=== PATIENT | female | born 1940 | race Caucasian/White ===

== ENCOUNTER 2024-08-15 07:30 | Inpatient (IN) | payer MEDICARE, BC ==
[~2024-08-15] VITALS: Ht 162.6 cm; Wt 59.0 kg
[2024-08-15 07:57] LABS: BASOPHILS % (AUTO) 0.2 % (0.0-2.0); HEMATOCRIT 39.7 % (31.2-41.9); HEMOGLOBIN 13.3 g/dL (10.9-14.3); LYMPHOCYTES # (AUTO) 0.5 K/uL (0.8-4.8); LYMPHOCYTES % (AUTO) 9.5 % (20.5-51.5); MEAN CORPUSCULAR HEMOGLOBIN 32.1 uug (24.7-32.8); MEAN CORPUSCULAR HGB CONC 34 g/dL (32.3-35.6); MEAN CORPUSCULAR VOLUME 95.8 fL (75.5-95.3); MONOCYTES # (AUTO) 0.4 K/uL (0.1-1.30); MONOCYTES % (AUTO) 7.4 % (0.0-11.0); NEUTROPHILS # (AUTO) 4.6 K/uL (1.8-8.9); NEUTROPHILS % (AUTO) 82.9 % (38.5-71.5); PLATELET COUNT (AUTO) 80 K/uL (179-408); RED BLOOD CELL COUNT(AUTO) 4.14 MIL/uL (3.63-4.92); WHITE BLOOD COUNT (AUTO) 5.6 K/uL (3.8-11.8)
[2024-08-15 07:58] LABS: DIFFERENTIAL COMMENT 1
[2024-08-15] MEDS ORDERED: CEFTRIAXONE /D5W 50ML IVPB **ER PYXIS IV ONE (08:02)
[2024-08-15] MEDS ORDERED: AZITHROMYCIN 250 MG TABLET ONE (08:03)
[2024-08-15] MEDS: AZITHROMYCIN 250 MG TABLET PO ONE (08:03)
[2024-08-15] MEDS: CEFTRIAXONE 1 G in IV DEXTROSE 5% 50 ML IV ONE (08:03)
[2024-08-15] MEDS: IV NORMAL SALINE 1000 ML BAG IV ONE (08:03)
[2024-08-15 08:06] LABS: CARBON DIOXIDE 28 mmol/L (21-32); CHLORIDE 97 mmol/L (98-107); CREATININE 1.1 mg/dL (0.6-1.3); GLUCOSE 87 mg/dL (74-106); POTASSIUM 4.1 mmol/L (3.5-5.1); SODIUM SERUM 127 mmol/L (136-145); UREA NITROGEN, BLOOD 18 mg/dL (7-18)
[2024-08-15 08:19] LABS: ALANINE AMINOTRANSFERASE 15 U/L (14-59); ALBUMIN 3.3 g/dL (3.4-5.0); ALKALINE PHOSPHATASE 61 U/L (50-136); ASPARTATE AMINOTRANSFERASE 21 U/L (15-37); BILIRUBIN,DIRECT 0.3 mg/dL (0.0-0.2); BILIRUBIN,TOTAL 0.6 mg/dL (0.2-1.0); NT-PRO BNP 1324 pg/mL (0-125); TOTAL PROTEIN, SERUM 6.7 g/dL (6.4-8.2)
[2024-08-15] MEDS ORDERED: ATEN25TA PO (08:51)
[2024-08-15] MEDS ORDERED: HYDR200T81 PO (08:51)
[2024-08-15] MEDS ORDERED: ATEN-170 PO (08:51)
[2024-08-15] MEDS ORDERED: PRED1TAB PO (08:51)
[2024-08-15] MEDS ORDERED: CHOL10005 PO (08:51)
[2024-08-15] MEDS ORDERED: GABA-532 PO (08:51)
[2024-08-15] MEDS ORDERED: METOCLOPRAMIDE HCL 10 MG/2 ML VIAL ONE (09:16)
[2024-08-15] MEDS ORDERED: KETOROLAC TROMETHAMINE 15 MG INJ ONE (09:16)
[2024-08-15] MEDS: METOCLOPRAMIDE HCL 10 MG/2 ML VIAL IV ONE (09:22)
[2024-08-15] MEDS: KETOROLAC TROMETHAMINE 15 MG INJ IVP ONE (09:23)
[2024-08-15] MEDS: ACYCLOVIR IV 500 MG in IV DEXTROSE 5% 100 ML IV SCH (10:22)
[2024-08-15] MEDS ORDERED: ACYCLOVIR 500 MG VIAL IV ONE (10:22)
[2024-08-15 10:27] LABS: CSF GLUCOSE 53 mg/dL (40-70); CSF PROTEIN 40 mg/dL (15-45)
[2024-08-15] MEDS ORDERED: ONDANSETRON 4 MG/2 ML VIAL ONE (11:02)
[2024-08-15] MEDS: ONDANSETRON 4 MG/2 ML VIAL IV ONE (11:02)
[2024-08-15] MEDS ORDERED: MORPHINE SULFATE 4 MG/1 ML DISP.SYRIN ONE (11:02)
[2024-08-15] MEDS: MORPHINE SULFATE 4 MG/1 ML DISP.SYRIN IV ONE (11:02)
[2024-08-15 12:24] LABS: CSF APPEARANCE CLEAR (CLEAR); CSF COLOR COLORLESS (COLORLESS); CSF VOLUME 1.6 mL
[2024-08-15 12:56] LABS: CSF WHITE BLOOD CELL COUNT 0 /cumm (0-5)
[2024-08-15] MEDS ORDERED: DULO30CA52 PO (14:03)
[2024-08-15] MEDS ORDERED: SIMV-49 PO (14:05)
[2024-08-15] MEDS ORDERED: GABA600T12 PO (14:06)
[2024-08-15] MEDS ORDERED: MORPHINE SULFATE 20 MG/1 ML ORAL LIQ. PO PRN (15:30)
[2024-08-15 15:40] VITALS: BP 104/53; TEMP 98.1; O2SAT 98
[2024-08-15] MEDS: NICOTINE 14 MG/24HR PATCH TD SCH (16:19)
[2024-08-15] MEDS: ACETAMINOPHEN 325 MG TABLET PO PRN (18:15)
[2024-08-15 19:20] VITALS: BP 91/44; TEMP 97.8; O2SAT 99
[2024-08-15] MEDS ORDERED: MAGNESIUM HYDROXIDE 30 ML LIQUID UDC PO PRN (19:30)
[2024-08-15] MEDS ORDERED: ONDANSETRON 4 MG/2 ML VIAL IV PRN (19:30)
[2024-08-15] MEDS ORDERED: TEMAZEPAM 15 MG CAPSULE PO PRN (19:30)
[2024-08-15 20:34] LABS: *BILIRUBIN,URIN NEGATIVE (NEGATIVE); *BLOOD, URINE 1+ (NEGATIVE); *CLARITY,URINE CLEAR (CLEAR); *COLOR,URINE YELLOW (YELLOW); *KETONES,URINE NEGATIVE (NEGATIVE); *PROTEIN,URINE 1+ (NEGATIVE); *UROBILINOGEN,URINE 0.2 E.U./dl (NORMAL); LEUKOCYTE ESTERASE ,URINE NEGATIVE (NEGATIVE); NITRITE, URINE NEGATIVE (NEGATIVE); UGLUCOSE NEGATIVE (NEGATIVE)
[2024-08-15] MEDS: GABAPENTIN 300 MG CAPSULE PO SCH (21:09)
[2024-08-15 21:11] LABS: BACTERIA,URINE NONE SEEN /HPF (NONE SEEN); SQUAMOUS EPITHELIAL CELL,UR FEW /HPF (NONE SEEN); WBC,URINE 0-3 /HPF (0-3)
[2024-08-15] MEDS: IV NS 1000 ML 1,000 ML IV PRN (21:20)
[2024-08-15] MEDS ORDERED: VANCOMYCIN IV 200 ML ONE (23:52)
[2024-08-16] VITALS (8 sets, daily range): BP systolic 123–143; BP diastolic 48–72; TEMP 97.9–98.8; O2SAT 95–100
[2024-08-16] MEDS: VANCOMYCIN IV 1,000 MG in IV DEXTROSE 5% 250 ML IV ONE (00:10)
[2024-08-16] MEDS: MORPHINE SULFATE 2 MG/1 ML DISP.SYRIN IV PRN (00:17)
[2024-08-16 07:59] LABS: BASOPHILS % (AUTO) 0.2 % (0.0-2.0); EOSINOPHILS % (AUTO) 0.2 % (0.0-7.0); HEMATOCRIT 34.6 % (31.2-41.9); HEMOGLOBIN 11.5 g/dL (10.9-14.3); LYMPHOCYTES # (AUTO) 0.7 K/uL (0.8-4.8); LYMPHOCYTES % (AUTO) 15.2 % (20.5-51.5); MEAN CORPUSCULAR HEMOGLOBIN 31.8 uug (24.7-32.8); MEAN CORPUSCULAR HGB CONC 33 g/dL (32.3-35.6); MEAN CORPUSCULAR VOLUME 95.5 fL (75.5-95.3); MONOCYTES # (AUTO) 0.5 K/uL (0.1-1.30); MONOCYTES % (AUTO) 11.9 % (0.0-11.0); NEUTROPHILS # (AUTO) 3.2 K/uL (1.8-8.9); NEUTROPHILS % (AUTO) 72.5 % (38.5-71.5); PLATELET COUNT (AUTO) 56 K/uL (179-408); RED BLOOD CELL COUNT(AUTO) 3.62 MIL/uL (3.63-4.92); RED CELL DISTRIBUTION WIDTH 13.2 % (12.3-17.7); WHITE BLOOD COUNT (AUTO) 4.4 K/uL (3.8-11.8)
[2024-08-16 08:21] LABS: ALANINE AMINOTRANSFERASE 23 U/L (14-59); ALBUMIN 2.7 g/dL (3.4-5.0); ALKALINE PHOSPHATASE 57 U/L (50-136); ASPARTATE AMINOTRANSFERASE 24 U/L (15-37); BILIRUBIN,TOTAL 0.4 mg/dL (0.2-1.0); CALCIUM 7.7 mg/dL (8.5-10.1); CARBON DIOXIDE 28 mmol/L (21-32); CHLORIDE 103 mmol/L (98-107); CHOLESTEROL 124 mg/dL (<200); CREATININE 0.8 mg/dL (0.6-1.3); GLUCOSE 84 mg/dL (74-106); HDL CHOLESTEROL 64 mg/dL (40-60); PHOSPHOROUS 1.6 mg/dL (2.5-4.9); POTASSIUM 4.1 mmol/L (3.5-5.1); SODIUM SERUM 137 mmol/L (136-145); TRIGLYCERIDES 83 MG/DL (30-150); UREA NITROGEN, BLOOD 12 mg/dL (7-18)
[2024-08-16 08:34] LABS: C-REACTIVE PROTEIN 16.44 mg/dL (0.00-0.30)
[2024-08-16] MEDS: ASPIRIN EC 81 MG TABLET.DR PO SCH (08:41)
[2024-08-16] MEDS: DULOXETINE 30 MG CAPSULE.DR PO SCH (08:41)
[2024-08-16] MEDS: CEFTRIAXONE 1 G in IV DEXTROSE 5% 50 ML IV SCH (08:41)
[2024-08-16] MEDS: predniSONE 2.5 MG TABLET PO SCH (08:41)
[2024-08-16] MEDS: HYDROXYCHLOROQUINE SULFATE 200 MG TABLET PO SCH ×2 (08:41→21:24)
[2024-08-16] MEDS ORDERED: HYDROXYCHLOROQUINE SULFATE 200 MG TABLET PO SCH (09:00)
[2024-08-16] MEDS ORDERED: predniSONE 1 MG TABLET PO SCH (09:00)
[2024-08-16] MEDS ORDERED: CEFTRIAXONE 1 G in IV DEXTROSE 5% 50 ML IV SCH (09:00)
[2024-08-16 09:12] LABS: ERYTHROCYTE SEDIMENTATION RATE 31 MM/HR (0-20)
[2024-08-16] MEDS: NEUTRA PHOS PACKET PO ONE (17:34)
[2024-08-16] MEDS ORDERED: SWABABLE VALVE TRANSFER SET EA MC ONE (20:38)
[2024-08-16] MEDS ORDERED: IV NORMAL SALINE 250 ML IV ONE (20:38)
[2024-08-16] MEDS ORDERED: IOHEXOL 300MG/ML 100 ML INFUS..BTL ONE (20:38)
[2024-08-16] MEDS: GABAPENTIN 300 MG CAPSULE PO SCH (21:24)
[2024-08-16] MEDS: AZITHROMYCIN 250 MG TABLET PO ONE (21:40)
[2024-08-17] VITALS (10 sets, daily range): BP systolic 121–139; BP diastolic 57–78; TEMP 97.9–99.2; O2SAT 92–100
[2024-08-17] MEDS ORDERED: VANCOMYCIN IV 1,000 MG in IV DEXTROSE 5% 250 ML IV SCH
[2024-08-17] MEDS ORDERED: ALBUTEROL SULFATE 2.5 MG/3 ML NEBU NEB PRN (00:15)
[2024-08-17] MEDS: ALBUTEROL SULFATE 2.5 MG/3 ML NEBU NEB PRN (00:37)
[2024-08-17 06:02] LABS: BASOPHILS % (AUTO) 0.6 % (0.0-2.0); EOSINOPHILS % (AUTO) 0.2 % (0.0-7.0); HEMATOCRIT 31.7 % (31.2-41.9); HEMOGLOBIN 10.9 g/dL (10.9-14.3); LYMPHOCYTES # (AUTO) 0.7 K/uL (0.8-4.8); LYMPHOCYTES % (AUTO) 16.7 % (20.5-51.5); MEAN CORPUSCULAR HEMOGLOBIN 32.3 uug (24.7-32.8); MEAN CORPUSCULAR HGB CONC 34 g/dL (32.3-35.6); MEAN CORPUSCULAR VOLUME 94.1 fL (75.5-95.3); MONOCYTES # (AUTO) 0.6 K/uL (0.1-1.30); MONOCYTES % (AUTO) 14.8 % (0.0-11.0); NEUTROPHILS # (AUTO) 2.8 K/uL (1.8-8.9); NEUTROPHILS % (AUTO) 67.7 % (38.5-71.5); PLATELET COUNT (AUTO) 62 K/uL (179-408); RED BLOOD CELL COUNT(AUTO) 3.37 MIL/uL (3.63-4.92); RED CELL DISTRIBUTION WIDTH 13.1 % (12.3-17.7); WHITE BLOOD COUNT (AUTO) 4.2 K/uL (3.8-11.8)
[2024-08-17 06:03] LABS: DIFFERENTIAL COMMENT 1
[2024-08-17 06:19] LABS: ALANINE AMINOTRANSFERASE 17 U/L (14-59); ALBUMIN 2.5 g/dL (3.4-5.0); ALKALINE PHOSPHATASE 59 U/L (50-136); ASPARTATE AMINOTRANSFERASE 24 U/L (15-37); BILIRUBIN,TOTAL 0.3 mg/dL (0.2-1.0); CALCIUM 7.9 mg/dL (8.5-10.1); CARBON DIOXIDE 28 mmol/L (21-32); CHLORIDE 108 mmol/L (98-107); CREATININE 0.8 mg/dL (0.6-1.3); GLUCOSE 91 mg/dL (74-106); MAGNESIUM 2.2 mg/dL (1.8-2.4); PHOSPHOROUS 2.4 mg/dL (2.5-4.9); POTASSIUM 3.8 mmol/L (3.5-5.1); SODIUM SERUM 142 mmol/L (136-145); TOTAL PROTEIN, SERUM 5.4 g/dL (6.4-8.2); UREA NITROGEN, BLOOD 8 mg/dL (7-18)
[2024-08-17 06:42] LABS: LYMPHOCYTES % (MANUAL) 17 % (20-40); MONOCYTES % (MANUAL) 15 % (2-10); NEUTROPHILS % (MANUAL) 68 % (42-75); PLATELET ESTIMATE DECREASED
[2024-08-17] MEDS: AZITHROMYCIN 250 MG TABLET PO SCH (09:26)
[2024-08-17] MEDS: NEUTRA PHOS PACKET PO ONE (17:32)
[2024-08-17] MEDS: CEFEPIME HCL 1 G in IV DEXTROSE 5% 50 ML IV SCH (21:34)
[2024-08-18 06:04] VITALS: BP 114/61; TEMP 98.1; O2SAT 98
[2024-08-18 07:40] LABS: BASOPHILS % (AUTO) 0.4 % (0.0-2.0); HEMATOCRIT 30.1 % (31.2-41.9); HEMOGLOBIN 10.2 g/dL (10.9-14.3); LYMPHOCYTES # (AUTO) 1.1 K/uL (0.8-4.8); LYMPHOCYTES % (AUTO) 25.3 % (20.5-51.5); MEAN CORPUSCULAR HEMOGLOBIN 32.1 uug (24.7-32.8); MEAN CORPUSCULAR HGB CONC 34 g/dL (32.3-35.6); MEAN CORPUSCULAR VOLUME 94.7 fL (75.5-95.3); MONOCYTES # (AUTO) 0.6 K/uL (0.1-1.30); NEUTROPHILS # (AUTO) 2.6 K/uL (1.8-8.9); NEUTROPHILS % (AUTO) 60.3 % (38.5-71.5); PLATELET COUNT (AUTO) 73 K/uL (179-408); RED BLOOD CELL COUNT(AUTO) 3.17 MIL/uL (3.63-4.92); RED CELL DISTRIBUTION WIDTH 13.2 % (12.3-17.7); WHITE BLOOD COUNT (AUTO) 4.3 K/uL (3.8-11.8)
[2024-08-18 08:08] LABS: DIFFERENTIAL COMMENT 1
[2024-08-18 08:19] LABS: CALCIUM 7.7 mg/dL (8.5-10.1); CARBON DIOXIDE 29 mmol/L (21-32); CHLORIDE 109 mmol/L (98-107); CREATININE 0.6 mg/dL (0.6-1.3); GLUCOSE 80 mg/dL (74-106); PHOSPHOROUS 3.1 mg/dL (2.5-4.9); POTASSIUM 3.8 mmol/L (3.5-5.1); SODIUM SERUM 144 mmol/L (136-145); UREA NITROGEN, BLOOD 7 mg/dL (7-18)
[2024-08-18] MEDS ORDERED: ASPIRIN EC 81 MG TABLET.DR PO SCH (09:00)
[2024-08-18 11:12] VITALS: BP 120/59; TEMP 98.2; O2SAT 96
[2024-08-18 14:00] VITALS: O2SAT 96
[2024-08-18 19:35] VITALS: BP 137/65; TEMP 98.4; O2SAT 97
[2024-08-19] VITALS (7 sets, daily range): BP systolic 112–140; BP diastolic 50–63; TEMP 97.5–98.5; O2SAT 96–99
[2024-08-20 04:36] VITALS: O2SAT 97
[2024-08-20 06:00] VITALS: BP 118/57; TEMP 97.6; O2SAT 97
[2024-08-20 07:25] LABS: BASOPHILS % (AUTO) 0.6 % (0.0-2.0); EOSINOPHILS # (AUTO) 0.2 K/uL (0.0-0.7); EOSINOPHILS % (AUTO) 3.3 % (0.0-7.0); LYMPHOCYTES # (AUTO) 1.4 K/uL (0.8-4.8); LYMPHOCYTES % (AUTO) 27.7 % (20.5-51.5); MEAN CORPUSCULAR HEMOGLOBIN 32.3 uug (24.7-32.8); MEAN CORPUSCULAR HGB CONC 34 g/dL (32.3-35.6); MEAN CORPUSCULAR VOLUME 94.3 fL (75.5-95.3); MONOCYTES # (AUTO) 0.9 K/uL (0.1-1.30); MONOCYTES % (AUTO) 17.6 % (0.0-11.0); NEUTROPHILS # (AUTO) 2.5 K/uL (1.8-8.9); NEUTROPHILS % (AUTO) 50.8 % (38.5-71.5); PLATELET COUNT (AUTO) 147 K/uL (179-408); RED BLOOD CELL COUNT(AUTO) 3.39 MIL/uL (3.63-4.92); RED CELL DISTRIBUTION WIDTH 13.2 % (12.3-17.7)
[2024-08-20 07:34] LABS: DIFFERENTIAL COMMENT 1
[2024-08-20 07:44] LABS: CARBON DIOXIDE 31 mmol/L (21-32); CHLORIDE 107 mmol/L (98-107); POTASSIUM 4.3 mmol/L (3.5-5.1); SODIUM SERUM 142 mmol/L (136-145)
[2024-08-20 07:45] LABS: CALCIUM 8.3 mg/dL (8.5-10.1); CREATININE 0.7 mg/dL (0.6-1.3); GLUCOSE 79 mg/dL (74-106); UREA NITROGEN, BLOOD 9 mg/dL (7-18)
[2024-08-20 08:09] LABS: PHOSPHOROUS 3.2 mg/dL (2.5-4.9)
[2024-08-20 11:17] VITALS: BP 117/54; TEMP 98.4; O2SAT 98
[2024-08-20] MEDS ORDERED: AZIT250T13 PO (14:25)
[2024-08-20] MEDS ORDERED: AMOX-427 PO (14:25)
[2024-08-20] MEDS ORDERED: ALBU8.5H8 INH (14:25)
[2024-08-20 15:15] LABS: BAND % (MANUAL) 4 % (0-10); EOSINOPHILS % (MANUAL) 1 % (0-8); LYMPHOCYTES % (MANUAL) 27 % (20-40); MONOCYTES % (MANUAL) 17 % (2-10); NEUTROPHILS % (MANUAL) 51 % (42-75); PLATELET ESTIMATE DECREASED
== END 2024-08-20 15:10 | disposition home or self-care (01) | DRG 871 ==
LOC: ER 07:30 → TELE IN 11:08 → TELE3 12:06 → MEDSURG3 08-18 07:00
PROVIDERS: ADMIT Internal Medicine; ATTEND Internal Medicine
PROC: 009U3ZX Drainage of Spinal Canal, Percutaneous Approach, Diagnostic (ICD-10-PCS; principal; 2024-08-15)
PROC: B01BYZZ Fluoroscopy of Spinal Cord using Other Contrast (ICD-10-PCS; 2024-08-15)
DX: A41.9 Sepsis, unspecified organism (principal); J18.9 Pneumonia, unspecified organism; E87.1 Hypo-osmolality and hyponatremia; E22.2 Syndrome of inappropriate secretion of antidiuretic hormone; E44.1 Mild protein-calorie malnutrition; J21.9 Acute bronchiolitis, unspecified; R04.2 Hemoptysis; F05 Delirium due to known physiological condition; D69.6 Thrombocytopenia, unspecified; G90.89 Other disorders of autonomic nervous system; Z90.49 Acquired absence of other specified parts of digestive tract; Z85.828 Personal history of other malignant neoplasm of skin; Z87.891 Personal history of nicotine dependence; Z68.22 Body mass index [BMI] 22.0-22.9, adult; E88.09 Other disorders of plasma-protein metabolism, not elsewhere classified; G62.9 Polyneuropathy, unspecified; D75.89 Other specified diseases of blood and blood-forming organs; J01.80 Other acute sinusitis; M06.9 Rheumatoid arthritis, unspecified; Z79.52 Long term (current) use of systemic steroids; Z79.899 Other long term (current) drug therapy; Z88.2 Allergy status to sulfonamides; R79.89 Other specified abnormal findings of blood chemistry; R51.9 Headache, unspecified; I70.0 Atherosclerosis of aorta; D64.9 Anemia, unspecified
CPT/HCPCS: 36415; 70450; 71045; 71260; 82533; 82746; 83605; 83735; 84100; 84157; 84443; 84484; 84550; 85025; 85651; 85730; 86140; 87040; 87086; 87798; 89051; 94640; 94760; A4606; A4663; G0378; J0133; J0692; J0696; J1885; J2270; J2405; J2765; J3370; J7040; J7050; J7512; Q0144; Q9967